=== PATIENT | female | born 1955 | race Caucasian/White ===

== ENCOUNTER 2020-07-29 22:08 | Emergency (ER) | payer MEDICARE, OTHER ==
[2020-07-29] MEDS ORDERED: OXYCODONE-ACETAMINOPHEN 5-325 MG TABLET PO ONE (23:27)
--- NOTE | 2020-07-29 23:33 | ER Document Report ---
ED Medical Screen (RME) - General Stated Complaint: BACK OF HEAD PAIN/DIZZINESS Time Seen by Provider: 07/29/20 23:27 Mode of Arrival: Ambulatory Information source: Patient Notes: 64-year-old female coming in today with severe occipital headache and neck pain. Has history of MAIL AGENT shunt. Feels like she is got increased pressure in her head. No fevers or chills. Some dizziness. Nausea no vomiting. General exam nontoxic H EENT: PERRLA, EOMI, occipital tenderness No focal neuro deficits I have greeted and performed a rapid initial assessment of this patient. A comprehensive ED assessment and evaluation of the patient, analysis of test results and completion of the medical decision making process will be conducted by additional ED providers. Physical Exam - Vital signs Vitals: Temp Pulse Resp BP Pulse Ox 98.3 F 66 16 143/69 H 99 07/29/20 22:37 07/29/20 22:37 07/29/20 22:37 07/29/20 22:37 07/29/20 22:37 Course - Vital Signs Vital signs: Temp Pulse Resp BP Pulse Ox 98.3 F 66 16 143/69 H 99 07/29/20 22:37 07/29/20 22:37 07/29/20 22:37 07/29/20 22:37 07/29/20 22:37
[2020-07-29] MEDS ORDERED: HYDROCODONE/ACETAMINOPHEN 5-325 MG TABLET PO ONE (23:35)
--- NOTE | 2020-07-30 00:30 | RADIOLOGY REPORT (SQ) ---
EXAM DESCRIPTION: CT HEAD WITHOUT IV CONTRAST, CT CERVICAL SPINE WITHOUT IV CONTRAST COMPLETED DATE/TME: 07/29/2020 23:27 EXAM: CLINICAL INDICATION: 64-year-old female with headache. COMPARISON: None. TECHNIQUE: CT brain without contrast. This exam was performed according to our departmental dose optimization program which includes use of automated exposure control, adjustment of the mA and/or kV according to patient size and/or use of iterative reconstruction technique. FINDINGS: Postoperative changes are identified at the level of the LEFT frontal pterional calvarium affixed with surgical screws. Additional postoperative changes present on the RIGHT with RIGHT frontal eric hole and a ventriculoperitoneal shunt terminating at the level of the frontal horn of the LEFT lateral ventricle. Radiopaque portions of the shunt catheter tubing appear to be intact. The ventricles appear to be bilaterally asymmetric, larger on the RIGHT and LEFT. There is slitlike appearance of the LEFT lateral ventricle. Interval change in ventricular volumes cannot be evaluated without prior imaging, however there is no ventricular dilation or periventricular hypoattenuation to suggest transependymal flow of CSF or acute ventriculomegaly. Small volume of gliosis and encephalomalacia is present at the level of the LEFT temporal lobe compatible with sequela of prior surgery. The sulci, and cisterns are symmetric and unremarkable. The vines-white matter differentiation is preserved. There is no mass effect, midline shift, intra- or extra-axial fluid collection/acute hemorrhage. The osseous structures are unremarkable. The paranasal sinuses and mastoid air cells are clear. IMPRESSION: 1. No acute intracranial abnormalities. 2. Intact appearance of the ventriculoperitoneal shunt catheter. 3. Ventricular volumes within normal limits as detailed above. TECHNIQUE: Cervical spine CT was performed without contrast. Multiplanar reformatted images were provided. This exam was performed according to our departmental dose optimization program which includes use of automated exposure control, adjustment of the mA and/or kV according to patient size and/or use of iterative reconstruction technique. COMPARISON: None. FINDINGS: There is normal alignment of the cervical spine without fracture or subluxation. The facets are normal in alignment bilaterally. The posterior elements including the spinous processes are intact. Reversal of the cervical spine which may be secondary to positioning for the examination. Morphology and attenuation of the vertebral bodies and intervertebral disk spaces is compatible with multilevel degenerative change. Multilevel loss of intervertebral disk height. Multilevel posterior osseous spurring results in moderate to severe neuroforaminal narrowing throughout the cervical spine. Posterior osseous spurring C5-6 and C6-7 vertebral levels resulting in effacement of the ventral thecal sac and at least mild central spinal canal narrowing. The pre-and paravertebral soft tissues are within normal limits. IMPRESSION: 1. Reversal of the cervical spine which may be secondary to positioning for the examination versus spasm. 2. No fracture or acute subluxation.
[2020-07-30] MEDS ORDERED: HYDROMORPHONE HCL INJ/PF 2 MG/ML AMPULE IV ONE (02:36)
[2020-07-30] MEDS ORDERED: ONDANSETRON HCL INJ/PF 4 MG/2 ML SDV IV ONE (02:36)
[2020-07-30] MEDS ORDERED: NORMAL SALINE 1000 ML 1,000 ML IV ONE (02:37)
[2020-07-30 02:59] LABS: ABSOLUTE EOSINOPHILS # (AUTO) 0.3 10^3/uL (0.0-0.6); ABSOLUTE MONOCYTES (AUTO) 0.9 10^3/uL (0.1-1.4); ABSOLUTE NEUT (AUTO) 8.9 10^3/uL (1.7-8.2); BASOPHILS % (AUTO) 0.3 % (0-2); HEMATOCRIT 37.9 % (36.0-47.0); HEMOGLOBIN 12.8 g/dL (12.0-15.5); LYMPHOCYTES % (AUTO) 23.1 % (13-45); MEAN CORPUSCULAR HEMOGLOBIN 29.6 pg (27.0-33.4); MEAN CORPUSCULAR HGB CONC 33.8 g/dL (32.0-36.0); MEAN CORPUSCULAR VOLUME 87 fl (80-97); MONOCYTES % (AUTO) 7.1 % (3-13); PLATELET COUNT 374 10^3/uL (150-450); RED BLOOD COUNT 4.34 10^6/uL (3.72-5.28); RED CELL DISTRIBUTION WIDTH 13.3 % (11.5-14.0); SEGMENTED NEUTROPHILS % (AUTO) 67.5 % (42-78); TOTAL CELLS COUNTED % (AUTO) 100 %; WHITE BLOOD COUNT 13.1 10^3/uL (4.0-10.5)
[2020-07-30 03:20] LABS: ALKALINE PHOSPHATASE 90 U/L (38-126); ANION GAP 9 (5-19); ASPARTATE AMINO TRANSFERASE 22 U/L (14-36); BILIRUBIN,DIRECT 0.2 mg/dL (0.0-0.4); BILIRUBIN,TOTAL 0.5 mg/dL (0.2-1.3); BLOOD UREA NITROGEN 19 mg/dL (7-20); CALCIUM 9.4 mg/dL (8.4-10.2); CARBON DIOXIDE 28 mmol/L (22-30); CHLORIDE 103 mmol/L (98-107); GLUCOSE 119 mg/dL (75-110); POTASSIUM 4.5 mmol/L (3.6-5.0); TOTAL PROTEIN 6.6 g/dL (6.3-8.2)
--- NOTE | 2020-07-30 03:52 | RADIOLOGY REPORT (SQ) ---
Shuntogram x-ray three view on 07/30/2020 at 2:54 AM CLINICAL INDICATION: SMASH FIXER shunt, headache COMPARISON: CT head and cervical spine from 07/29/2020 FINDINGS: A right frontal approach ventricular catheter is noted extending just to the left of midline. Portion of the catheter in the head on this examination is not visualized but is visualized on the CT and is intact on the CT. CT evaluates the catheter down to the level of the anterior midline upper chest and it is intact on the CT of the head and cervical spine. The patient's bra was left on producing artifact on the chest. There does appear to be disruption of the SMASH FIXER shunt tubing in the left mid chest at the T6 vertebral body level. The SMASH FIXER shunt tube then distally extends into the abdomen with its tip in the left abdomen. The patient is status post a left total hip arthroplasty. The lungs are clear. Heart is within normal limits for size. Bowel gas pattern is unremarkable. IMPRESSION: Apparent disruption and discontinuity of the patient's SMASH FIXER shunt tubing in the left mid chest.
[2020-07-30 03:57] LABS: A TYPE INFLUENZA AG NEGATIVE (NEGATIVE); B INFLUENZA AG NEGATIVE (NEGATIVE)
[2020-07-30] MEDS ORDERED: PROMETHAZINE HCL INJ 25 MG/1 ML VIAL IV ONE (04:00)
--- NOTE | 2020-07-30 04:01 | ER Document Report ---
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 Patient states the headache has been going on for about 1 day. The patient and her are visiting from [place]. Patient denies any type of trauma preceding onset of symptoms. Patient states she gets headaches sometimes but they are never usually this bad. She describes the headache as diffuse and pounding in is a 5 on a scale of 0-5. Patient is also complaining of nausea. Patient has not had any vomiting. Patient has not had any dystaxia. Patient denies fever, chills, shortness of breath, chest pain, loss of sense of taste or loss of sense of smell, known exposure to COVID-19 positive patients, known exposure to persons under investigation for COVID-19. Patient states she and her were tested for COVID-19 prior to coming to [place] and they state their test were both negative. Patient denies v isual disturbance. Associated symptoms: Other - See HPI Exacerbated by: Other - Movement Relieved by: Denies Similar symptoms previously: No - Related Data Allergies/Adverse Reactions: morphine Adverse Reaction (Verified 07/29/20 23:45) oxycodone Adverse Reaction (Verified 07/29/20 23:45) Home Medications: lisinopril, buspurone, clonidine, Past Medical History - General Information source: Patient - Social History Smoking Status: Never Smoker Drug Abuse: None Lives with: Spouse/Significant other Family History: Reviewed & Not Pertinent Patient has suicidal ideation: No Patient has homicidal ideation: No Review of Systems - Review of Systems Constitutional: See HPI EENT: No symptoms reported Cardiovascular: No symptoms reported Respiratory: No symptoms reported Gastrointestinal: Nausea Genitourinary: No symptoms reported Female Genitourinary: No symptoms reported Musculoskeletal: No symptoms reported Skin: No symptoms reported Hematologic/Lymphatic: No symptoms reported Neurological/Psychological: Headaches -: Yes All other systems reviewed and negative Physical Exam - Vital signs Vitals: Temp Pulse Resp BP Pulse Ox 98.3 F 66 16 143/69 H 99 07/29/20 22:37 07/29/20 22:37 07/29/20 22:37 07/29/20 22:37 07/29/20 22:37 - Notes Notes: CONSTITUTIONAL [Vital signs reviewed, Patient appears uncomfortable, Alert and oriented X 3,.] HEAD [Atraumatic, Normocephalic.] EYES [Eyes are normal to inspection, No discharge from eyes, Extraocular muscles intact, Sclera are normal, Conjunctiva are normal.] ENT [External ears normal to inspection, Nose examination normal, Posterior pharynx normal, Mouth normal to inspection.] NECK [Normal ROM, No jugular venous distention, No meningeal signs,.] RESPIRATORY CHEST [Chest is nontender, Breath sounds normal, No respiratory distress.] CARDIOVASCULAR [RRR, No murmurs, Normal S1 S2, No rub, No gallop.] ABDOMEN [Abdomen is nontender, No pulsatile masses, No other masses, Bowel sounds normal, No distension, No peritoneal signs, No hernias.] BACK [There is no CVA Tenderness, There is no tenderness to palpation, Normal inspection.] UPPER EXTREMITY [Inspection normal, No cyanosis, No clubbing, No edema, LOWER EXTREMITY [Inspection normal, No cyanosis, No clubbing, No edema, NEURO [No focal motor deficits, No focal sensory deficits, Speech normal.] SKIN [Skin is warm, Skin is dry, Skin is normal color.] PSYCHIATRIC [Normal affect. ] Course - Re-evaluation Re-evalutation: 07/30/20 04:35 Results of ED MSE discussed with patient and patient's spouse. Patient and patient's spouse informed that this MD would be contacting neurosurgical services at [facility] to arrange transfer given the patient has a disruption of her [employer] MANAGER shunt. - Vital Signs Vital signs: Temp Pulse Resp BP Pulse Ox 97.5 F 66 10 L 147/70 H 99 07/30/20 05:25 07/29/20 22:37 07/30/20 05:24 07/30/20 05:24 07/30/20 05:24 - Laboratory Result Diagrams: 07/30/20 02:18 07/30/20 02:18 Laboratory results interpreted by me: 07/30/20 07/30/20 02:18 02:18 WBC 13.1 H Absolute Neuts (auto) 8.9 H Est GFR (MDRD) Non-Af 58 L Glucose 119 H - Diagnostic Test Radiology reviewed: Reports reviewed - Consults JENNIFER Beck with [facility] Neurosurgery Time consulted: 04:45 - JENNIFER Copeland accepted pt for transfer to his facility on behalf of the neurosurgical attending, Dr. Barber Canales Reason for consultation: 07/30/20 04:54 FRO[employer] MANAGER shunt disruption and headache Critical Care Note - Critical Care Note Total time excluding time spent on procedures (mins): 60 - evp of products & co founder shunt disruption Discharge - Discharge Clinical Impression: Nonfunctioning ventriculoperitoneal shunt Qualifiers: Encounter type: initial encounter Qualified Code(s): T85.09XA - Other mechanical complication of ventricular intracranial (communicating) shunt, initial encounter Condition: Stable Disposition: [facility]
[2020-07-30 05:48] VITALS: BP 147/70
--- NOTE | 2020-07-30 05:48 | ER Document Report ---
Doctor's Note Notes: 07/30/20 05:47 ALS transport is around take the patient to [facility]. This MD went into the patient's room and spoke with her patient is becoming more alert, she is able to sit up in bed without difficulty, she makes good eye contact and is cooperative, pleasant and appreciative of care. Patient appears stable for transport.
== END 2020-07-30 05:50 | disposition short-term general hospital (02) ==
LOC: ER 22:08
DX: T85.09XA Other mechanical complication of ventricular intracranial (communicating) shunt, initial encounter (principal); Y83.8 Other surgical procedures as the cause of abnormal reaction of the patient, or of later complication, without mention of misadventure at the time of the procedure; R51.9 Headache, unspecified; R11.0 Nausea; Z79.899 Other long term (current) drug therapy
CPT/HCPCS: 99285; 96361; 96374; 96375; 36415; 85025; 80053; 87804; 75809; 70450; 72125; J1170; J2550; J2405; J7030; A9270

== ENCOUNTER → 2020-09-27 | Outpatient (CLI) | payer MEDICARE, OTHER ==
[2020-09-27 10:55] LABS: ABSOLUTE BASOPHILS # (AUTO) 0.1 10^3/uL (0.0-0.2); ABSOLUTE EOSINOPHILS # (AUTO) 0.4 10^3/uL (0.0-0.6); ABSOLUTE LYMPHOCYTES (AUTO) 2.9 10^3/uL (0.5-4.7); ABSOLUTE MONOCYTES (AUTO) 0.6 10^3/uL (0.1-1.4); ABSOLUTE NEUT (AUTO) 4.3 10^3/uL (1.7-8.2); BASOPHILS % (AUTO) 0.6 % (0-2); EOSINOPHILS % (AUTO) 4.4 % (0-6); HEMATOCRIT 36.8 % (36.0-47.0); HEMOGLOBIN 12.8 g/dL (12.0-15.5); MEAN CORPUSCULAR HEMOGLOBIN 29.7 pg (27.0-33.4); MEAN CORPUSCULAR HGB CONC 34.7 g/dL (32.0-36.0); MEAN CORPUSCULAR VOLUME 86 fl (80-97); PLATELET COUNT 321 10^3/uL (150-450); RED BLOOD COUNT 4.29 10^6/uL (3.72-5.28); RED CELL DISTRIBUTION WIDTH 14.3 % (11.5-14.0); TOTAL CELLS COUNTED % (AUTO) 100 %; WHITE BLOOD COUNT 8.2 10^3/uL (4.0-10.5)
[2020-09-27 11:15] LABS: ALBUMIN 4.2 g/dL (3.5-5.0); ALKALINE PHOSPHATASE 85 U/L (38-126); ANION GAP 8 (5-19); ASPARTATE AMINO TRANSFERASE 26 U/L (14-36); BILIRUBIN,DIRECT 0.2 mg/dL (0.0-0.4); BILIRUBIN,TOTAL 0.4 mg/dL (0.2-1.3); BLOOD UREA NITROGEN 16 mg/dL (7-20); CALCIUM 9.7 mg/dL (8.4-10.2); CARBON DIOXIDE 27 mmol/L (22-30); CHLORIDE 105 mmol/L (98-107); CHOLESTEROL 224.04 mg/dL (0-200); GLUCOSE 109 mg/dL (75-110); POTASSIUM 4.5 mmol/L (3.6-5.0); TOTAL PROTEIN 7.1 g/dL (6.3-8.2); TRIGLYCERIDES 376 mg/dL (<150)
[2020-09-27 11:26] LABS: DIRECT LDL 113 mg/dL (<100)
[2020-09-27 11:32] LABS: VLDL CHOLESTEROL 75.2 mg/dL (10-31)
[2020-09-27 11:38] LABS: FREE T4 (FREE THYROXINE) 1.27 ng/dL (0.78-2.19)
[2020-09-27 11:51] LABS: THYROID STIMULATING HORMONE 2.06 uIU/mL (0.47-4.68)
== END ==
LOC: OD 10:06
DX: Z00.00 Encounter for general adult medical examination without abnormal findings (principal); E03.9 Hypothyroidism, unspecified
CPT/HCPCS: 36415; 80053; 80061; 84439; 84443; 85025